=== PATIENT | male | born 1975 | race Caucasian/White ===

== ENCOUNTER 2018-05-23 21:53 | Emergency (ER) | payer SELFPAY ==
[~2018-05-23] VITALS: Ht 177.8 cm; Wt 95.3 kg
[~2018-05-23 21:53] MED LIST: CEPH-264 PO; HYDR-971 PO
--- NOTE | 2018-05-23 22:26 | ED.ADGEN ---
Past History Past Medical History: No Pertinent History Past Surgical History: No Surgical History Alcohol Use: Occasionally Drug Use: None Adult General Chief Complaint Chief Complaint ".. I tripped and fell into wall with ceramic tile.. and cut a chunk out of my Lt. arm.. It was spirting... I called an ambulance since I had been drinking.. My tetanus is up to date..". HPI HPI Patient is a 42 year old male who presents with above hx and 2 x 3 cm laceration - avulsion of tissue Lt. wrist. Patient has a scooped out area with loss of skin and tissue. There is some superficial arteries pulsating blood. Distal neurovascular appears to be intact. Patient's last tetanus was 3 years ago. No other injury reported. Patient is normally healthy. She is right-hand dominant works as a rough in [place] Review of Systems Review of Systems Constitutional: Denies fever or chills [] Eyes: Denies change in visual acuity, redness, or eye pain [] HENT: Denies nasal congestion or sore throat [] Respiratory: Denies cough or shortness of breath [] Cardiovascular: No additional information not addressed in HPI [] GI: Denies abdominal pain, nausea, vomiting, bloody stools or diarrhea [] : Denies dysuria or hematuria [] Musculoskeletal: Denies back pain or joint pain [] Integument: Denies rash or skin lesions []laceration left wrist Neurologic: Denies headache, focal weakness or sensory changes [] Endocrine: Denies polyuria or polydipsia [] All other systems were reviewed and found to be within normal limits, except as documented in this note. Family History Family History Noncontributory Current Medications Current Medications See nursing for home meds Allergies Allergies Allergies Coded Allergies Type Severity Reaction Last Updated Verified No Known Drug Allergies 06/17/16 No Physical Exam Physical Exam Constitutional: Moderately acute distress, non-toxic appearance. [] HENT: Normocephalic, atraumatic, bilateral external ears normal, oropharynx moist, no oral exudates, nose normal. [] Eyes: PERRLA, EOMI, conjunctiva normal, no discharge. [] Neck: Normal range of motion, no tenderness, supple, no stridor. [] Cardiovascular:Heart rate regular rhythm, no murmur [] Lungs & Thorax: Bilateral breath sounds clear to auscultation [] Abdomen: Bowel sounds normal, soft, no tenderness, no masses, no pulsatile masses. [] Skin: Warm, dry, no erythema, no rash. [] Laceration left wrist as per history of present illness Back: No tenderness, no CVA tenderness. [] Extremities: No tenderness, no cyanosis, no clubbing, ROM intact, no edema. [] Neurologic: Alert and oriented X 3, normal motor function, normal sensory function, no focal deficits noted. [] Psychologic: Affect normal, judgement normal, mood normal. [] Current Patient Data Vital Signs Vital Signs Date Time Temp Pulse Resp B/P (MAP) Pulse Ox O2 Delivery O2 Flow Rate FiO2 05/23/18 22:30 78 18 116/69 (85) 95 Room Air 05/23/18 21:53 98.2 EKG EKG [] Radiology/Procedures Radiology/Procedures [] Course & Med Decision Making Course & Med Decision Making Pertinent Labs and Imaging studies reviewed. (See chart for details) Procedure note-laceration avulsion repair- area of laceration cleaned with soap and water. Area was scrubbed with for a 4x4. Irrigated laceration with normal saline. Betadine to edge wound. Injected laceration site with Sensorcaine and lidocaine. Closed with 6 x 4-0 prolene sutures.. Laceration site under tension because of missing tissue. ` Patient applied with dressing. Patient keep wound clean and dry. Once this dressing removed apply Polysporin 4 times a day. Sutures out in 10 days. Patient will have a scar. Patient monitor closely for infection. It dressing currently becomes wet must be removed immediately. Patient follow-up primary care. Patient return if any concerns. [] Final Impression Final Impression 1. Laceration/avulsion left wrist[] Dragon Disclaimer Dragon Disclaimer This electronic medical record was generated, in whole or in part, using a voice recognition dictation system. BRIAN BEAN MD May 23, 2018 22:26
[2018-05-23 22:30] VITALS: BP 116/69
== END 2018-05-23 22:30 | disposition home or self-care (01) ==
LOC: ER 21:53
DX: S61.512A Laceration without foreign body of left wrist, initial encounter (principal); W01.198A Fall on same level from slipping, tripping and stumbling with subsequent striking against other object, initial encounter; Y93.89 Activity, other specified; Y92.89 Other specified places as the place of occurrence of the external cause; Y99.8 Other external cause status
CPT/HCPCS: 12001; 99283